=== PATIENT | female | born 1950 ===

== ENCOUNTER 2024-10-16 08:02 | Emergency (ER) | payer MEDICARE, SELFPAY ==
--- NOTE | ~2024-10-16 | CT_ITS ---
EXAMINATION: CT HEAD WITHOUT CONTRAST CLINICAL INFORMATION: Fall, head strike COMPARISON: None available. TECHNIQUE: Contiguous axial imaging was performed from the skull base to vertex without intravenous administration of contrast. This CT examination was performed using dose optimization techniques as appropriate, variously including the following: *Automated exposure control *Adjustment of mA and/or kV according to patient size (this includes techniques or standardized protocols for targeted exams where dose is matched to indication/reason for exam; i.e. extremities or head) *Use of iterative reconstruction technique FINDINGS: There is no evidence of intracranial hemorrhage or extra-axial fluid collection. There is no mass effect, or edema. No CT evidence of acute territorial infarct. Ventricles, sulci, and cisterns are normal in size and configuration for patient age. No hydrocephalus. No midline shift. Negative hyperdense MCA sign. Negative insular ribbon sign. Patchy periventricular and deep white matter hypoattenuation is consistent with mild to moderate small vessel ischemic changes. Normal pituitary. Globes and orbital contents image normally. There are bilateral lens replacements. No extracranial soft tissue abnormalities. The paranasal sinuses, mastoid air cells, and tympanic cavities are normally aerated. No suspicious bony abnormalities. There are no acute fractures evident. CT/CT head/brain wo IV con IMPRESSION: No acute intracranial abnormality. No fracture evident. Electronically signed by: Arnie Younger MD 10/16/2024 10:04 AM EDT
--- NOTE | ~2024-10-16 | CT_ITS ---
EXAMINATION: CT CERVICAL SPINE WITHOUT CONTRAST CLINICAL INFORMATION: Fall, head strike, neck pain. COMPARISON: None available. TECHNIQUE: Spiral CT imaging of the cervical spine performed in axial plane without contrast. Multiplanar reformatted images were constructed from the axial data set. This CT examination was performed using dose optimization techniques as appropriate, variously including the following: *Automated exposure control *Adjustment of mA and/or kV according to patient size (this includes techniques or standardized protocols for targeted exams where dose is matched to indication/reason for exam; i.e. extremities or head) *Use of iterative reconstruction technique FINDINGS: CORONAL ALIGNMENT: -Normal. SAGITTAL ALIGNMENT: -Reversal of the normal lordosis centered at C6. C1-C2 AND CRANIOCERVICAL JUNCTION: -Intact and normally aligned with mild degenerative changes. VERTEBRAL BODIES AND FACETS: -No fracture, compression deformity, traumatic subluxation, or suspicious bone lesion. -There is a 4 mm degenerative appearing anterolisthesis of C5 on C6. -Facets are intact. There is fusion of the C4-5 facet joints bilaterally. DISCS: -Multilevel disc degeneration, severe at C4-5, C5-6, C6-7, and C7-T1. CENTRAL CANAL: -No evidence of high-grade central canal narrowing or large disc herniation allowing for modality limitations. PREVERTEBRAL AND PARAVERTEBRAL SOFT TISSUES: -No prevertebral or paravertebral soft tissue edema, swelling, or abnormal fluid collection. -Moderate left carotid bulb calcification and mild right. -No focal thyroid abnormality allowing for modality. -No abnormal lymphadenopathy or mass within the neck. LUNG APICES: -Mild biapical scarring. Otherwise clear. CT/CT cervical spine wo IV con IMPRESSION: 1. No CT evidence of acute cervical spine fracture or injury. 2. Moderate to advanced degenerative spondylosis. Electronically signed by: Arnie Younger MD 10/16/2024 10:10 AM EDT
[2024-10-16 08:05] VITALS: BP 191/98; PULSE 66; RESP 18; TEMP 36.6; O2SAT 98; BMI 24.3
--- NOTE | 2024-10-16 09:06 | ED_ITS ---
HPI - General Adult General Chief complaint: Head Injury Stated complaint: Fell, Head inj/ bleeding, dementia Time Seen by Provider: 10/16/24 08:59 Source: patient, family (patient's son) and EMS Mode of arrival: EMS Limitations: physical limitation (patient has dementia) History of Present Illness ED Provider: Nelly Flowers PA-C HPI narrative: Patient is a 74 year old assigned female at with a history of dementia presenting to the emergency department today with a head laceration after a fall. Patient's son states that the patient was in the bathtub - showering, slipped, and fell - hitting the back of her head. Patient's son states that the patient had no loss of consciousness and is acting her baseline. Relieving factors: none Exacerbating factors: none Associated symptoms: denies other symptoms Treatments prior to arrival: none Related Data Allergies Allergy/AdvReac Type Severity Reaction Status Date / Time alcohol Allergy Rash Verified 10/16/24 08:08 Review of Systems 2 Review of Systems: Yes Other (all ROS answered by the patient's son given the patient's severe dementia) Constitutional: Constitutional: Reports no additional constitutional complaints and Denies fever(s) Eyes: Eyes: Reports no additional eye complaints, Denies change in vision, Denies diplopia, Denies eye discharge, Denies loss of vision and Denies eye pain Cardiovascular: Cardiovascular: Reports no additional cardiovascular complaints, Denies Loss of Consciousness and Denies dyspnea Respiratory: Respiratory: Reports no additional respiratory complaints, Denies cough and Denies dyspnea Gastrointestinal: Gastrointestinal: Reports no additional gastrointestinal complaints, Denies melena, Denies hematochezia, Denies change in bowel habits and Denies change in stool character Genitourinary: Genitourinary: Denies hematuria and Denies urinary incontinence Musculoskeletal: Musculoskeletal: Reports no additional musculoskeletal complaints Neurologic: Denies loss of vision Psychiatric: Psychiatric: Reports no additional psychiatric complaints Endocrine: Endocrine: Reports no additional endocrine complaints Hematologic/Lymphatic: Hematologic/Lymphatic: Reports no additional hematologic/lymphatic complaints Allergic/Immunologic: Allergic/Immunologic: Reports no additional allergic/immunologic complaints PMFSH Past Medical History Attestation statement: The following information was validated with the patient. (all information validated with the patient's son / point of care specialist) Source: old records reviewed, obtained from family (patient's son provided all history given the patient's dementia status) and nursing notes reviewed Social History Social History Unable to assess alcohol history related to: Unknown Smoked in Last 30 Days: No Advance Directives: No Advance Directives Information Provided: Yes Do you have a plan to hurt others: No Plan Physical Exam ED Vital Signs: Vital Signs - 24 hr 10/16/24 08:05 10/16/24 10:33 10/16/24 10:41 Temperature 98 F 98.3 F 98.3 F Pulse Rate 66 58 58 Respiratory Rate 18 16 16 Blood Pressure 191/98 H 180/85 H 180/85 H Pulse Oximetry 98 99 99 Oxygen Delivery Method Room Air Room Air BMI result Body Mass Index 24.3 Const General: cooperative, no acute distress, alert and awake Nutritional Appearance: well nourished HENMT Other: Ears: hearing grossly normal bilaterally and external ears normal General nose exam: Normal external nose present, no nasal discharge noted and no epistaxis Face and sinus: Yes normal facial exam, No abrasion and No laceration Mouth: Normal oral and palatal mucosa present, no drooling and no muffled voice Eyes General: appearance normal, both eyes and all related structures Periorbital: periorbital findings normal Eyelids: Yes eyelids normal Conjunctivae: conjunctivae normal Pupils: Equal, round and reactive pupils present EOM: EOMs intact bilaterally Neck Neck: Yes normal visual inspection, Yes full ROM and Yes no lymphadenopathy Resp Effort & Inspection: normal respiratory effort and able to speak in complete sentences Neuro Other: confused per her demented baseline General: moves all extremities and CN's II-XI intact bilaterally Cranial nerves: Yes Equal, round and reactive pupils present Extrem General: Yes normal to inspection, Yes full ROM and Yes capillary refill normal Psych Appearance: grossly normal Mental Status: mental status grossly normal Medications Administered Discontinued Medications Generic Name Dose Route Start Last Admin Trade Name Freq PRN Reason Stop Dose Admin Diphtheria/Tetanus/Acell Pertussis 0.5 ml 10/16/24 10:20 10/16/24 10:35 Diphth,Pertus(Acell),Tet Adult 0.5 Ml Syringe IM 10/16/24 10:21 0.5 ml .ONCE ONE Administration Procedures Laceration Laceration 1: Site: scalp Size (cm): 2 Description: irregular Depth: simple, single layer Pre-repair: deep structures intact Skin layer closed with: other (neelima) Technique: other (2 neelima) Medical Decision Making Medical Decision Making MDM Narrative: Patient is a 74 year old assigned female at with a history of dementia presenting to the emergency department today with a head laceration after a fall. Patient's physical exam was as noted in the physical exam portion of this note. Patient's CT head and c-spine showed no acute process. I explained my physical exam findings as well as all test results to the patient and the patient's son. I answered all questions asked by the patient and the patient's son. Patient's laceration was repaired with 2 neelima, without incident. I stressed the importance of the patient taking her medication as directed (either prescribed or as the over the counter packaging recommends). I stressed the importance of the patient following up with her primary care provider. I stressed the importance of the patient returning to the emergency department immediately if her symptoms were to worsen or if she were to develop any dizziness, shortness of breath, difficulty breathing, chest pain, blurry vision, loss of vision, nausea, vomiting, abdominal pain, fever, chills, back pain, or any other complaints. Patient and the patient's son verbalized agreement and understanding with this treatment plan and discharge. Differential Diagnosis Differential Diagnoses: The differential diagnosis associated with the presentation includes Scalp laceration Trip and fall Slip and fall Headache Intracranial bleeding Concussion Admission/Observation Consideration of admission/observation: Escalation of care including admission/observation considered Patient would have been admitted to the hospital had her work up had any findings where hospital admission was appropriate and her clinical presentation warranted hospital admission. Independent Interpretation I performed an independent interpretation of an: CT Scan Interpretation: My interpretation is in agreement with the radiologist's impression of these imaging studies. L Report Number: [id number]: Total DLP = 753.00 mGy-cm EXAMINATION: CT HEAD WITHOUT CONTRAST CLINICAL INFORMATION: Fall, head strike COMPARISON: None available. TECHNIQUE: Contiguous axial imaging was performed from the skull base to vertex without intravenous administration of contrast. This CT examination was performed using dose optimization techniques as appropriate, variously including the following: *Automated exposure control *Adjustment of mA and/or kV according to patient size (this includes techniques or standardized protocols for targeted exams where dose is matched to indication/reason for exam; i.e. extremities or head) *Use of iterative reconstruction technique FINDINGS: There is no evidence of intracranial hemorrhage or extra-axial fluid collection. There is no mass effect, or edema. No CT evidence of acute territorial infarct. Ventricles, sulci, and cisterns are normal in size and configuration for patient age. No hydrocephalus. No midline shift. Negative hyperdense MCA sign. Negative insular ribbon sign. Patchy periventricular and deep white matter hypoattenuation is consistent with mild to moderate small vessel ischemic changes. Normal pituitary. Globes and orbital contents image normally. There are bilateral lens replacements. No extracranial soft tissue abnormalities. The paranasal sinuses, mastoid air cells, and tympanic cavities are normally aerated. No suspicious bony abnormalities. There are no acute fractures evident. CT/CT head/brain wo IV con IMPRESSION: No acute intracranial abnormality. No fracture evident. Electronically signed by: Arnie Younger MD 10/16/2024 10:04 AM EDT RP Dictated By: Arnie Younger MD Signed By: Electronically signed by Arnie Younger MD 10/16/24 1004 Report Number: [id number]: Total DLP = 318.00 mGy-cm EXAMINATION: CT CERVICAL SPINE WITHOUT CONTRAST CLINICAL INFORMATION: Fall, head strike, neck pain. COMPARISON: None available. TECHNIQUE: Spiral CT imaging of the cervical spine performed in axial plane without contrast. Multiplanar reformatted images were constructed from the axial data set. This CT examination was performed using dose optimization techniques as appropriate, variously including the following: *Automated exposure control *Adjustment of mA and/or kV according to patient size (this includes techniques or standardized protocols for targeted exams where dose is matched to indication/reason for exam; i.e. extremities or head) *Use of iterative reconstruction technique FINDINGS: CORONAL ALIGNMENT: -Normal. SAGITTAL ALIGNMENT: -Reversal of the normal lordosis centered at C6. C1-C2 AND CRANIOCERVICAL JUNCTION: -Intact and normally aligned with mild degenerative changes. VERTEBRAL BODIES AND FACETS: -No fracture, compression deformity, traumatic subluxation, or suspicious bone lesion. -There is a 4 mm degenerative appearing anterolisthesis of C5 on C6. -Facets are intact. There is fusion of the C4-5 facet joints bilaterally. DISCS: -Multilevel disc degeneration, severe at C4-5, C5-6, C6-7, and C7-T1. CENTRAL CANAL: -No evidence of high-grade central canal narrowing or large disc herniation allowing for modality limitations. PREVERTEBRAL AND PARAVERTEBRAL SOFT TISSUES: -No prevertebral or paravertebral soft tissue edema, swelling, or abnormal fluid collection. -Moderate left carotid bulb calcification and mild right. -No focal thyroid abnormality allowing for modality. -No abnormal lymphadenopathy or mass within the neck. LUNG APICES: -Mild biapical scarring. Otherwise clear. CT/CT cervical spine wo IV con IMPRESSION: 1. No CT evidence of acute cervical spine fracture or injury. 2. Moderate to advanced degenerative spondylosis. Electronically signed by: Arnie Younger MD 10/16/2024 10:10 AM EDT RP Dictated by: Arnie Younger MD Signed By: Electronically signed by Arnie Younger MD 10/16/24 1010 Radiology Impression Discussion of test interpretation with radiology: I have reviewed the radiologist's reading. Independent Historian Clinical information obtained from an independent historian. History obtained from or confirmed by: EMS (EMS provided additional history and confirmed the history provided by the patient's son) and Other (Patient's son provided all history and ROS given the patient's severe dementia) Discharge Plan Discharge Clinical Impression: Laceration of head, Fall Patient Disposition: Home, Self-Care Instructions: Fall Prevention for Older Adults (ED), Staple Care (ED), Head Laceration (ED) Additional Instructions: Do NOT soak the affected area. Have the neelima (2) removed in 7-10 days. Do NOT expose yourself to any public bodies of water (pools, [place], lakes, oceans, etc.) Follow up with your primary care provider. Return to the emergency department immediately if your symptoms worsen or if you develop any numbness, tingling, dizziness, shortness of breath, difficulty breathing, chest pain, blurry vision, loss of vision, nausea, vomiting, abdominal pain, fever, chills, back pain, or any other complaints. Please see the information below about our Patient Portal. If you are not yet enrolled in the [facility] Patient Portal, you will receive an enrollment email invitation following your visit to any [facility] setting. You may also self-enroll in the Patient Portal by visiting our website: [email or web address] The following information is required to access the Patient Portal: - Your [facility] Medical Record Number - Your personal home email address (must match what is in your electronic medical record, Registration staff can assist with this) - Name - Date of Capabilities of the Patient Portal: - Message some providers - View upcoming appointments - Access your health summary, medical history, and visit history - View current conditions and allergies - View procedure and lab results - View your medications, including guidelines, side effects, and precautions - Complete pre-appointment questionnaires requested by your provider - Ready summary reports of your office visits and procedures To access the Patient Portal Mobile [employer], follow these directions: - Search [employer] in the [employer] Store or [employer] Store - Download the [employer] - Search for [facility] - Enter your login/password Referrals: Jewell Young MD [Primary Care Provider, Medical] Interventions: ED Discharge Assessment Last Done: 10/16/24 10:41 Discharge Date/Time: 10/16/24 10:43 Print Language: Nepali
[2024-10-16 10:33] VITALS: BP 180/85; PULSE 58; RESP 16; TEMP 36.8; O2SAT 99
[2024-10-16] MEDS: Diphth,Pertus(ACell),Tet Adult 0.5 ML SYRINGE IM (10:35)
[2024-10-16 10:41] VITALS: BP 180/85; PULSE 58; RESP 16; TEMP 36.8; O2SAT 99
== END 2024-10-16 10:43 | disposition home or self-care (01) ==
PROVIDERS: Emergency Provider Emergency Medicine; PCP Internal Medicine
DX: S01.01XA Laceration without foreign body of scalp, initial encounter (principal); W18.2XXA Fall in (into) shower or empty bathtub, initial encounter; M54.2 Cervicalgia; F03.90 Unspecified dementia, unspecified severity, without behavioral disturbance, psychotic disturbance, mood disturbance, and anxiety; Y93.E1 Activity, personal bathing and showering; Y92.091 Bathroom in other non-institutional residence as the place of occurrence of the external cause; Y99.8 Other external cause status; Z79.899 Other long term (current) drug therapy
CPT/HCPCS: 12001; 70450; 72125; 90471; 90715; 99284

== ENCOUNTER → 2024-10-16 09:06 | Outpatient (BNV) | payer MEDICARE, SELFPAY | PROVIDERS: Emergency Provider Emergency Medicine; PCP Internal Medicine; Visit Provider Radiology Diagnostic Radiology | DX: M54.2 Cervicalgia (principal); S09.90XA Unspecified injury of head, initial encounter; W19.XXXA Unspecified fall, initial encounter | CPT/HCPCS: 70450; 72125 ==